=== PATIENT | female | born 1970 | race Hispanic/Latino ===

== ENCOUNTER 2017-11-15 13:17 | Inpatient (IN) | payer MEDICAID, OTHER ==
[~2017-11-15] VITALS: Ht 160 cm; Wt 74.8 kg
[2017-11-15] MEDS ORDERED: CEFAZOLIN SODIUM 1 GM VIAL ONE (13:46)
[2017-11-15] MEDS ORDERED: MORPHINE SULFATE 4 MG/1ML SYG ONE (13:46)
[2017-11-15] MEDS ORDERED: LIDOCAINE 1%-EPI 1:100,000 20 ML VIAL IJ ONE (13:47)
[2017-11-15] MEDS ORDERED: ONDANSETRON ODT 4 MG TAB ONE (13:47)
[2017-11-15 16:45] VITALS: BP 153/101
[2017-11-15] MEDS ORDERED: MORPHINE SULFATE 2 MG/ML 1ML SYG IVP PRN (17:00)
[2017-11-15] MEDS ORDERED: HYDRALAZINE HCL 20 MG/ML VIAL IV PRN (17:00)
[2017-11-15] MEDS: MORPHINE SULFATE 4 MG/1ML SYG IVP PRN (17:23)
[2017-11-15 19:01] VITALS: BP 171/98
[2017-11-15 22:30] VITALS: BP 140/82
[2017-11-15 23:55] VITALS: BP 144/73
[2017-11-16] VITALS (31 sets, daily range): BP systolic 107–149; BP diastolic 57–89
[2017-11-16] MEDS: MORPHINE SULFATE 4 MG/1ML SYG IVP PRN ×3 (01:24→15:16)
[2017-11-16] MEDS ORDERED: LISI10TA7 PO (02:54)
[2017-11-16 04:49] LABS: MEAN CORPUSCULAR HEMOGLOBIN 29.1 pg (27.0-33.0); MEAN CORPUSCULAR HGB CONC 33.5 g/dL (32.0-36.0); MEAN CORPUSCULAR VOLUME 86.8 fL (79-99); PLATELET COUNT (AUTO) 271 K/uL (130-400); RED BLOOD CELL COUNT(AUTO) 4.72 MIL/uL (4.00-5.50); RED CELL DISTRIBUTION WIDTH 13.7 % (11.0-15.5)
[2017-11-16 05:05] LABS: CREATININE 0.9 mg/dL (0.5-1.5); POTASSIUM 4.2 mmol/L (3.5-5.1)
[2017-11-16 05:06] LABS: INR 0.96 (0.85-1.15); PROTHROMBIN TIME 10.1 SEC (9.6-11.6)
[2017-11-16] MEDS ORDERED: LACTATED RINGERS 1000ML 1,000 ML IV ONE (07:21)
[2017-11-16] MEDS ORDERED: CEFAZOLIN SODIUM 1 GM VIAL ONE (07:21)
[2017-11-16] MEDS ORDERED: DEXAMETHASONE SOD PHOSPHATE 10MG/ML 1ML VIAL ONE (07:36)
[2017-11-16] MEDS ORDERED: ONDANSETRON HCL 4 MG/2 ML VIAL ONE (07:36)
[2017-11-16] MEDS ORDERED: MIDAZOLAM HCL 1 MG/ML 2ML VIAL ONE (07:36)
[2017-11-16] MEDS ORDERED: GLYCOPYRROLATE 0.2 MG/ML 5 ML VIAL ONE (07:36)
[2017-11-16] MEDS ORDERED: LIDOCAINE PF 2% 5ML ABBOJECT ONE (07:36)
[2017-11-16] MEDS ORDERED: FENTANYL CITRATE PF 50 MCG/1 ML 2ML VIAL ONE ×2 (07:37→09:20)
[2017-11-16] MEDS ORDERED: PROPOFOL 10 MG/ML 20ML VIAL IV ONE (07:37)
[2017-11-16] MEDS: CEFAZOLIN SODIUM 1 GM VIAL IVP SCH ×3 (07:57→18:24)
[2017-11-16] MEDS ORDERED: MEPERIDINE-PF 25 MG/ML SYG ONE ×2 (09:07→09:30)
[2017-11-16] MEDS ORDERED: ONDANSETRON HCL MDV 20ML 2 MG/ML VIAL IVP PRN (11:15)
[2017-11-16] MEDS ORDERED: MORPHINE SULFATE 4 MG/1ML SYG IV PRN (15:15)
[2017-11-16] MEDS: HYDROCODONE/ACETAMINOPHEN 5/325 MG TAB PO PRN (18:24)
[2017-11-17 00:39] VITALS: BP 112/63
[2017-11-17] MEDS: CEFAZOLIN SODIUM 1 GM VIAL IVP SCH ×2 (03:17→11:06)
[2017-11-17 05:08] VITALS: BP 127/66
[2017-11-17 07:30] VITALS: BP 139/80
[2017-11-17] MEDS: HYDROCODONE/ACETAMINOPHEN 5/325 MG TAB PO PRN (08:27)
[2017-11-17] MEDS ORDERED: LISINOPRIL 10 MG TABLET PO SCH (09:00)
[2017-11-17 10:54] LABS: BASOPHILS % (AUTO) 0.3 % (0.0-5.0); EOSINOPHILS % (AUTO) 0.2 % (0.0-8.0); HEMATOCRIT 38.9 % (36-48); LYMPHOCYTES % (AUTO) 25.2 % (21.0-51.0); MEAN CORPUSCULAR HEMOGLOBIN 29.5 pg (27.0-33.0); MEAN CORPUSCULAR HGB CONC 34.3 g/dL (32.0-36.0); MONOCYTES % (AUTO) 6.3 % (3.0-13.0); PLATELET COUNT (AUTO) 239 K/uL (130-400); RED BLOOD CELL COUNT(AUTO) 4.52 MIL/uL (4.00-5.50); RED CELL DISTRIBUTION WIDTH 13.9 % (11.0-15.5); WHITE BLOOD COUNT (AUTO) 14.9 K/uL (4.8-10.8)
[2017-11-17 11:00] VITALS: BP 139/76
[2017-11-17 11:05] LABS: CREATININE 0.8 mg/dL (0.5-1.5); POTASSIUM 3.7 mmol/L (3.5-5.1)
== END 2017-11-17 12:05 | disposition home or self-care (01) | DRG 514 ==
LOC: EDH 13:17 → 4AH 15:56
PROVIDERS: ADMIT Family Medicine; ATTEND Family Medicine
PROC: 0PBP0ZZ Excision of Right Metacarpal, Open Approach (ICD-10-PCS; principal; 2017-11-16 07:38)
PROC: 0PSP04Z Reposition Right Metacarpal with Internal Fixation Device, Open Approach (ICD-10-PCS; 2017-11-16 07:38)
DX: S62.304B Unspecified fracture of fourth metacarpal bone, right hand, initial encounter for open fracture (principal); I10 Essential (primary) hypertension; Z87.891 Personal history of nicotine dependence
CPT/HCPCS: 36415; 71045; 73130; 76000; 80048; 85025; 85027; 85610; 85730; 93005; A4218; C1713; J0690; J1100; J2001; J2175; J2250; J2270; J2405; J2704; J3010; J3490; J7120

== ENCOUNTER 2019-05-03 08:03 | Day surgery (SDC) | payer OTHER, BC ==
[~2019-05-03] VITALS: Ht 160 cm; Wt 75.3 kg
[~2019-05-03 08:03] MED LIST: LISI10TA7 PO; OMEP-50 PO; SODIUM CHLORIDE 0.9% 1000ML 1,000 ML IV ONE
[2019-05-03 08:30] VITALS: BP 158/85
[2019-05-03] MEDS ORDERED: PROPOFOL 10 MG/ML 20ML VIAL IV ONE (09:01)
[2019-05-03] MEDS ORDERED: SUCCINYLCHOLINE 200MG/10ML SYR ONE (09:01)
[2019-05-03] MEDS ORDERED: LEVOFLOXACIN 750 MG/D5W 150 ML 150 ML IV SCH (09:30)
[2019-05-03 09:32] VITALS: BP 115/81
[2019-05-03 09:37] VITALS: BP 134/77
[2019-05-03 09:42] VITALS: BP 135/78
[2019-05-03 09:47] VITALS: BP 148/78
[2019-05-03 09:52] VITALS: BP 144/78
--- NOTE | 2019-05-03 09:55 | NUR ---
dc pt dc home via [place], no distress noted pt accompanied by spouse, pt states has a headache states shes used totaking coffee in am. patient instructed to keep npo for 4 hrs then resume CLD for 6 hrs then solid po diet. pt states will sleep it off. vs stable on dicharge.
--- NOTE | 2019-05-03 09:55 | NUR ---
ROD BURGOS CRNA MADE AWARE THAT PATIENT C/O HEADACHE.
== END 2019-05-03 09:55 | disposition home or self-care (01) ==
LOC: DAH 08:03 → ENDO 08:03
PROVIDERS: ATTEND Internal Medicine
DX: K86.2 Cyst of pancreas (principal); K31.89 Other diseases of stomach and duodenum; I10 Essential (primary) hypertension; E66.9 Obesity, unspecified; Z79.899 Other long term (current) drug therapy
CPT/HCPCS: 43238; 88173; 88305; A4215 ×2; A4216; A4221; A4222; A4223; A4606; A4615; A4657; A4663; J0330; J1956; J2704; J7030

== ENCOUNTER 2020-11-07 13:21 | Emergency (ER) | payer BC ==
[~2020-11-07 13:21] MED LIST changes: +LISI10TA24 PO; -LISI10TA7 PO; -OMEP-50 PO; +OMEP20CA12 PO; -SODIUM CHLORIDE 0.9% 1000ML 1,000 ML IV ONE
[2020-11-07 14:09] LABS: APPEARANCE,URINE Clear (CLEAR); BILIRUBIN,URINE Negative (NEGATIVE); COLOR,URINE Yellow (YELLOW); GLUCOSE, URINE (UA) Negative (NEGATIVE); KETONES,URINE Negative (NEGATIVE); LEUKOCYTE ESTERASE ,URINE Negative (NEGATIVE); NITRATE,URINE Negative (NEGATIVE); OCCULT BLOOD,URINE Moderate (NEGATIVE); PROTEIN,URINE Negative (NEGATIVE); UROBILINOGEN,URINE 0.2 mg/dL (0.2-1.0)
[2020-11-07 14:28] LABS: BACTERIA,URINE Rare /HPF (None Seen); RBC,URINE 0-1 /HPF (0-1); SQUAMOUS EPITHELIAL CELL,UR Few /HPF (0-2); WBC,URINE 0-1 /HPF (0-1)
[2020-11-07 14:36] LABS: BASOPHILS % (AUTO) 0.5 % (0.0-5.0); EOSINOPHILS % (AUTO) 0.2 % (0.0-8.0); HEMATOCRIT 40.5 % (36-48); LYMPHOCYTES % (AUTO) 25.8 % (21.0-51.0); MEAN CORPUSCULAR HEMOGLOBIN 29.2 pg (27.0-33.0); MEAN CORPUSCULAR HGB CONC 33.1 g/dL (32.0-36.0); MEAN CORPUSCULAR VOLUME 88.2 fL (79-99); MONOCYTES % (AUTO) 5.1 % (3.0-13.0); NEUTROPHILS % (AUTO) 68.3 % (40.0-77.0); PLATELET COUNT (AUTO) 286 K/uL (130-400); RED BLOOD CELL COUNT(AUTO) 4.59 MIL/uL (4.00-5.50); RED CELL DISTRIBUTION WIDTH 13.8 % (11.0-15.5); WHITE BLOOD COUNT (AUTO) 8.4 K/uL (4.8-10.8)
[2020-11-07 14:58] LABS: CREATININE 0.9 mg/dL (0.5-1.5); POTASSIUM 3.6 mmol/L (3.5-5.1)
[2020-11-07 15:03] LABS: ALBUMIN 4.1 g/dL (3.5-5.0); BILIRUBIN,TOTAL 0.3 mg/dL (0.2-1.0); TOTAL PROTEIN, SERUM 8.4 g/dL (6.0-8.3)
== END 2020-11-07 16:21 | disposition home or self-care (01) ==
LOC: EDH 13:21
DX: R03.0 Elevated blood-pressure reading, without diagnosis of hypertension (principal); F41.9 Anxiety disorder, unspecified; Z98.890 Other specified postprocedural states
CPT/HCPCS: 36415; 71045; 80053; 81001; 84484; 85025; 93005

== ENCOUNTER 2022-03-21 05:57 | Day surgery (SDC) | payer BC ==
[2022-03-18 09:01] VITALS: BP 138/70
[2022-03-18 15:07] LABS: BASOPHILS % (AUTO) 0.7 % (0.0-5.0); EOSINOPHILS % (AUTO) 1.3 % (0.0-8.0); HEMATOCRIT 43.9 % (36-48); LYMPHOCYTES % (AUTO) 37.9 % (21.0-51.0); MEAN CORPUSCULAR HEMOGLOBIN 29.3 pg (27.0-33.0); MEAN CORPUSCULAR HGB CONC 32.3 g/dL (32.0-36.0); MEAN CORPUSCULAR VOLUME 90.5 fL (79-99); MONOCYTES % (AUTO) 4.3 % (3.0-13.0); NEUTROPHILS % (AUTO) 55.7 % (40.0-77.0); PLATELET COUNT (AUTO) 305 K/uL (130-400); RED BLOOD CELL COUNT(AUTO) 4.85 MIL/uL (4.00-5.50); WHITE BLOOD COUNT (AUTO) 8.7 K/uL (4.8-10.8)
[2022-03-21] VITALS (15 sets, daily range): BP systolic 125–153; BP diastolic 59–79
[~2022-03-21] VITALS: Ht 160 cm; Wt 81.8 kg
[~2022-03-21 05:57] MED LIST changes: -OMEP20CA12 PO
[2022-03-21] MEDS ORDERED: CEFAZOLIN SODIUM 1 GM VIAL IVP SCH (06:00)
[2022-03-21] MEDS ORDERED: LACTATED RINGERS 1000ML 1,000 ML IV SCH (06:00)
[2022-03-21] MEDS ORDERED: MIDAZOLAM HCL 1 MG/ML 2ML VIAL ONE (06:45)
[2022-03-21] MEDS ORDERED: PROPOFOL 10 MG/ML 20ML VIAL IV ONE (06:45)
[2022-03-21] MEDS ORDERED: FENTANYL CITRATE PF 50 MCG/1 ML 2ML VIAL ONE (06:46)
[2022-03-21] MEDS ORDERED: LIDOCAINE PF 100MG/5ML (2%) SYRINGE 5ML ONE (06:48)
[2022-03-21] MEDS ORDERED: CEFAZOLIN SODIUM 2 GM VIAL IV ONE (07:25)
[2022-03-21] MEDS ORDERED: DEXAMETHASONE SOD PHOSPHATE 4 MG/ML 1ML VIAL ONE (07:27)
[2022-03-21] MEDS ORDERED: ONDANSETRON 4MG INJ ONE (07:27)
[2022-03-21] MEDS ORDERED: EPHEDRINE SULFATE 50 MG/ML AMPULE ONE (07:36)
[2022-03-21] MEDS ORDERED: KETOROLAC 30MG VIAL (30MG/ML) ONE (07:57)
== END 2022-03-21 09:30 | disposition home or self-care (01) ==
LOC: DAH 05:57
PROVIDERS: ATTEND Obstetrics & Gynecology
DX: N92.0 Excessive and frequent menstruation with regular cycle (principal); N93.9 Abnormal uterine and vaginal bleeding, unspecified; N92.3 Ovulation bleeding; I10 Essential (primary) hypertension; Z98.891 History of uterine scar from previous surgery; Z98.890 Other specified postprocedural states
CPT/HCPCS: 84703; 85025; 86850 ×2; 86900 ×2; 86901 ×2; 87426; 36415 ×2; 58563; J1100; A4663; J7030; A4351; J0690 ×2; J7120; J3010; J2001; J3490; J2250; J2704; J2405; J1885; A4315; A4215; A4223; A4222; A4221; A4600

== ENCOUNTER 2023-07-09 19:12 | Emergency (ER) | payer BC ==
[~2023-07-09] VITALS: Ht 160 cm; Wt 81.6 kg
[2023-07-09 20:36] LABS: BASOPHILS # (AUTO) 0.07 K/uL (0.00-0.20); BASOPHILS % (AUTO) 0.4 % (0.0-5.0); EOSINOPHILS # (AUTO) 0.08 K/uL (0.00-0.70); EOSINOPHILS % (AUTO) 0.5 % (0.0-8.0); HEMATOCRIT 40.9 % (36-48); IMMATURE GRANULOCYTE ABSOLUTE 0.07 K/uL (0-1); MEAN CORPUSCULAR HEMOGLOBIN 29.3 pg (27.0-33.0); MEAN CORPUSCULAR VOLUME 88.7 fL (79-99); MONOCYTES # (AUTO) 0.8 K/uL (0.1-1.0); MONOCYTES % (AUTO) 4.6 % (3.0-13.0); NEUTROPHILS # (AUTO) 13.4 K/uL (1.8-7.7); NEUTROPHILS % (AUTO) 82.1 % (40.0-77.0); PLATELET COUNT (AUTO) 250 K/uL (130-400); RED BLOOD CELL COUNT(AUTO) 4.61 MIL/uL (4.00-5.50); RED CELL DISTRIBUTION WIDTH 13.2 % (11.0-15.5); WHITE BLOOD COUNT (AUTO) 16.3 K/uL (4.8-10.8)
[2023-07-09 20:42] LABS: APPEARANCE,URINE TURBID (CLEAR); BILIRUBIN,URINE NEGATIVE (NEGATIVE); COLOR,URINE LIGHT-ORANGE (YELLOW); GLUCOSE, URINE (UA) NEGATIVE (NEGATIVE); KETONES,URINE NEGATIVE (NEGATIVE); LEUKOCYTE ESTERASE ,URINE 75 Leu/uL (NEGATIVE); NITRATE,URINE NEGATIVE (NEGATIVE); OCCULT BLOOD,URINE LARGE (NEGATIVE); PH,URINE 5.5 (5.0-8.0); PROTEIN,URINE 70 mg/dL (NEGATIVE); UROBILINOGEN,URINE 0.2 mg/dL (0.2-1.0)
[2023-07-09 20:43] LABS: ADD UA MICROSCOPIC YES
[2023-07-09 20:48] LABS: BACTERIA,URINE FEW /HPF (None Seen); MUCUS,URINE FEW LPF (None Seen); RBC,URINE TNTC /HPF (0-1); SQUAMOUS EPITHELIAL CELL,UR FEW /HPF (0-2); UNCLASSIFIED CRYSTAL 5 /HPF (None Seen); WBC CLUMP FEW /HPF (0-1); WBC,URINE 51-100 /HPF (0-1); YEAST,URINE BUDDING RARE /HPF (None Seen)
[2023-07-09] MEDS ORDERED: KETOROLAC 30MG VIAL (30MG/ML) IVP ONE (21:00)
[2023-07-09] MEDS ORDERED: ONDANSETRON 4MG INJ IVP ONE (21:00)
[2023-07-09] MEDS ORDERED: MORPHINE 2 MG SYG IVP ONE (21:00)
[2023-07-09 21:12] LABS: ALBUMIN 3.8 g/dL (3.5-5.0); BILIRUBIN,TOTAL 0.3 mg/dL (0.2-1.0); TOTAL PROTEIN, SERUM 8.1 g/dL (6.0-8.3)
[2023-07-09] MEDS ORDERED: IBUP-1493 PO (22:00)
[2023-07-09] MEDS ORDERED: TAMS-1 PO (22:00)
[2023-07-09] MEDS ORDERED: TRAM50TA4 PO (22:00)
[2023-07-09 23:33] VITALS: BP 136/55; PULSE 70; RESP 18; O2SAT 99
== END 2023-07-09 23:35 | disposition home or self-care (01) ==
LOC: EDH 19:12
DX: N20.0 Calculus of kidney (principal); I10 Essential (primary) hypertension; Z79.899 Other long term (current) drug therapy
CPT/HCPCS: 99284; 74176; 96374; 96375; 82150; 80053; 83690; 85025; 87077; 87088; 87186; 81001; 36415; J2270; J2405; J1885